=== PATIENT | female | born 1975 | race Two or more races ===

== ENCOUNTER 2018-08-11 18:08 | Emergency (ER) | payer SELFPAY ==
[~2018-08-11] VITALS: Ht 167.6 cm; Wt 100.0 kg
[2018-08-11] MEDS ORDERED: SODIUM CHLORIDE 0.9% 1,000 ML IV ONE (19:22)
[2018-08-11] MEDS ORDERED: ASPIRIN 81MG TABLET PO ONE (19:30)
[2018-08-11 20:17] LABS: CHLORIDE 108 mEq/L (98-107)
[2018-08-11 20:19] LABS: BASOPHILS % 0.9 % (0.0-2.0); EOSINOPHILS % 1.5 % (0.0-5.0); HEMATOCRIT. 40.2 % (36.0-48.0); HEMOGLOBIN. 12.9 g/dL (12.0-16.0); LYMPHOCYTES % 20.2 % (20.0-50.0); MEAN CORPUSCULAR HEMOGLOBIN 23.8 pg (28.0-32.0); MEAN PLATELET VOLUME 8.2 fl (7.4-10.4); MONOCYTES % 7.4 % (2.0-8.0); PLATELET 419 x1000/uL (130-400); RED BLOOD CELL COUNT 5.43 mill/uL (4.2-5.4); RED CELL DISTRIBUTION WIDTH 16.4 % (11.6-14.6)
[2018-08-11 20:21] LABS: ETHANOL BLOOD < 10 mg/dL; PARTIAL THROMBOPLASTIN TIME 27.4 sec (23.4-31.0)
[2018-08-11 20:26] LABS: CREATINE KINASE 155 IU/L (26-192)
[2018-08-11 20:32] LABS: HCG SCREEN NEGATIVE
[2018-08-11] MEDS ORDERED: LORAZEPAM 1MG TABLET PO ONE (22:15)
[2018-08-11 22:29] LABS: *BARBITURATES SCREEN URINE NEGATIVE (NEGATIVE)
[2018-08-11 22:30] LABS: *AMPHETAMINES SCREEN URINE NEGATIVE (NEGATIVE); *BENZODIAZEPINES SCREEN URINE NEGATIVE (NEGATIVE); *COCAINE SCREEN URINE NEGATIVE (NEGATIVE); METHADONE URINE SCREEN NEGATIVE (NEGATIVE); OPIATES URINE SCREEN NEGATIVE (NEGATIVE)
[2018-08-11 22:31] LABS: CANNABINOID URINE SCREEN NEGATIVE (NEGATIVE); PHENCYCLIDINE URINE SCREEN NEGATIVE (NEGATIVE)
[2018-08-11 23:13] VITALS: BP 133/73
== END 2018-08-11 23:26 | disposition home or self-care (01) ==
LOC: ER 18:08 → CANBEDREQ 23:29
DX: I47.1 Supraventricular tachycardia (principal); R00.2 Palpitations; F41.9 Anxiety disorder, unspecified; R07.89 Other chest pain
CPT/HCPCS: 36415; 71045; 80053; 80305; 82550; 83880; 84443; 84484; 84703; 85025; 85610; 85730; 93005; 99284; G0482; J7030

== ENCOUNTER 2020-12-07 14:14 | Emergency (ER) | payer OTHER ==
[~2020-12-07] VITALS: Ht 162.6 cm; Wt 92.0 kg
[2020-12-07] MEDS ORDERED: ASPIRIN 81MG TABLET PO ONE (15:15)
[2020-12-07 15:24] LABS: BASOPHILS % 1.3 % (0.0-2.0); HEMATOCRIT. 38.4 % (36.0-48.0); HEMOGLOBIN. 13.1 g/dL (12.0-16.0); LYMPHOCYTES % 18.6 % (20.0-50.0); MEAN CORPUSCULAR HEMOGLOBIN 28.6 pg (28.0-32.0); MEAN CORPUSCULAR VOLUME 83.7 fL (81.0-99.0); MEAN PLATELET VOLUME 7.5 fl (7.4-10.4); MONOCYTES % 7.7 % (2.0-8.0); NEUTROPHILS % 70.4 % (40.0-76.0); PLATELET 386 x1000/uL (130-400); RED BLOOD CELL COUNT 4.59 mill/uL (4.2-5.4); RED CELL DISTRIBUTION WIDTH 13.2 % (11.6-14.6)
[2020-12-07 15:30] LABS: CHLORIDE 108 mEq/L (98-107)
[2020-12-07 16:37] LABS: HCG SCREEN NEGATIVE
[2020-12-07 17:20] VITALS: BP 142/83
== END 2020-12-07 17:36 | disposition home or self-care (01) ==
LOC: ER 14:30 → CANBEDREQ 19:48
DX: R07.89 Other chest pain (principal); I47.1 Supraventricular tachycardia; F41.9 Anxiety disorder, unspecified
CPT/HCPCS: 36415; 71045; 80053; 83880; 84484; 84703; 85025; 93005; 99285; Z7610